=== PATIENT | female | born 2000 | race Caucasian/White ===

== ENCOUNTER 2022-12-18 15:39 | Emergency (ER) | payer BC ==
[2022-12-18] MEDS ORDERED: HYDROmorphone 1 MG/ML Syringe IM ONE (16:48)
== END 2022-12-18 18:30 | disposition home or self-care (01) ==
LOC: JD.ED 15:39
DX: S43.015A Anterior dislocation of left humerus, initial encounter (principal); W18.40XA Slipping, tripping and stumbling without falling, unspecified, initial encounter
CPT/HCPCS: 23650; 73030; 96372; 99283; J1170; 99282

== ENCOUNTER 2022-12-24 22:16 | Emergency (ER) | payer BC ==
[2022-12-24] MEDS ORDERED: Naloxone 0.4 MG/ML SDV IVPUSH PRN (23:41)
[2022-12-24] MEDS ORDERED: HYDROmorphone 0.5 MG/0.5 ML Syringe IVPUSH ONE (23:41)
[2022-12-24] MEDS ORDERED: Ondansetron 4 MG/2 ML SDV IVPUSH ONE (23:41)
[2022-12-24] MEDS ORDERED: Lidocaine 1% 10 ML MDV INJECT ONE (23:42)
[2022-12-25] MEDS ORDERED: Ketorolac 60 MG/2 ML SDV IM ONE (01:15)
[2022-12-25] MEDS ORDERED: Acetaminophen/oxyCODONE 325-5 MG Tab PO ONE (01:15)
== END 2022-12-25 01:30 | disposition home or self-care (01) ==
LOC: JD.ED 22:16
DX: S42.302A Unspecified fracture of shaft of humerus, left arm, initial encounter for closed fracture (principal)
CPT/HCPCS: 73030; 96372; 96374; 96375; 99283; A9270; J1170; J1885; J2405; 99282